=== PATIENT | female | born 1950 | race African-American/Black ===

== ENCOUNTER → 2016-11-07 | Outpatient (CLI) | payer OTHER ==
--- NOTE | ~2016-11-07 | MY11 ---
[facility] A Service of [facility] RADIOLOGY TEXT RESULTS PATIENT: AHSAN RODRIGUEZ LOCATION: [facility] : 48 UNIT #: [id number] AGE: [address]: Letty Alba MD SEX: F ORDER DR: [id number] [facility] [place] [address]. [place], [place] [address] [id number] O MR#: [id number] Acc #: [id number] NAME: AHSAN RODRIGUEZ : 1950 SEX: F STUDY DATE/TIME: 11/07/2016 11:50 UNIT: [facility] ROOM: STUDY DESCRIPTION: MY Mammogram Screening Dig Mega Attending Physician: Letty Alba M.D. Referring Physician: Letty Alba M.D. Ordering Physician: Letty Alba M.D. Primary Care Physician: Letty Alba M.D. MEDICAL IMAGING REPORT This report is preliminary unless electronic signature is present EXAM Bilateral digital screening mammogram with CAD 11/07/2016 INDICATION 65-year-old female for routine screening. No reported problems. No personal or family history of breast cancer. No surgeries. TECHNIQUE CC and MLO views of the breasts were obtained and reviewed with an FDA-approved CAD device. COMPARISON 11/01/2015, 10/07/2014, 09/02/2013. FINDINGS Breast parenchyma is composed of scattered fibroglandular densities. The pattern is unchanged. There is no new dominant nodule or mass in either breast. No new suspicious cluster of microcalcifications. Benign appearing nodularity in both breasts is stable for technical factors. IMPRESSION Benign screening mammogram. 1 year followup recommended. Patients over the age of 40 are entered into a reminder system with target due date for the next mammogram. A result letter will also be sent to the patient. BIRADS: 2 Benign finding Dictated by... Johnny Higginbotham M.D. [facility] A Service of [facility] RADIOLOGY TEXT RESULTS PATIENT: AHSAN RODRIGUEZ LOCATION: [facility] : 48 UNIT #: [id number] AGE: [address]: Letty Alba MD SEX: F ORDER DR: THIS IS AN ELECTRONICALLY VERIFIED REPORT Johnny Higginbotham M.D. at 11/07/2016 5:13 PM CAMI/latasha TD: 11/07/2016 14:07 JOB #: [id number] MEDICAL IMAGING REPORT Page 1 of 1 COPY
== END | disposition home or self-care (01) ==
LOC: CWCC 10:56
DX: Z12.31 Encounter for screening mammogram for malignant neoplasm of breast (principal)
CPT/HCPCS: G0202